=== PATIENT | female | born 1950 | race Caucasian/White ===

== ENCOUNTER 2024-10-03 15:30 | Inpatient (IN) | payer MEDICARE, OTHER ==
[~2024-10-03] VITALS: Ht 167.6 cm; Wt 59.0 kg
[~2024-10-03 15:30] MED LIST: DILT300C34 PO; HYDR12.55 PO; LORA10TA7 PO; OMEP40CA21 PO; SOTA80TA73 PO; TRAZ-251 PO
[2024-10-03] MEDS: diltiazem 5mg/ml 5ml inj. IV ONE (16:03)
[2024-10-03 16:05] LABS: BASOPHILS # (AUTO) 0.1 X10'3 (0-0.2); BASOPHILS % (AUTO) 0.6 % (0-1); EOSINOPHILS % (AUTO) 0.1 % (0-6); HEMATOCRIT 35.3 % (35.0-45.0); HEMOGLOBIN 12.1 g/dl (12.0-16.0); LYMPHOCYTES # (AUTO) 1.1 X10'3 (1.1-4.8); LYMPHOCYTES % (AUTO) 10.5 % (21-51); MEAN CORPUSCULAR HEMOGLOBIN 31.3 PG (27.0-31.0); MEAN CORPUSCULAR HGB CONC 34.4 g/dL (33.0-36.5); MEAN CORPUSCULAR VOLUME 91.2 FL (78-98); MEAN PLATELET VOLUME 8.3 FL (7.4-10.4); MONOCYTES % (AUTO) 18.4 % (2-12); NEUTROPHILS # (AUTO) 7.7 X10'3 (1.8-7.7); NEUTROPHILS % (AUTO) 70.4 % (42-75); PLATELET COUNT 363 X10'3 (140-440); RED BLOOD COUNT 3.87 X10'6 (4.20-5.60); WHITE BLOOD COUNT 10.9 X10'3 (4.5-11.0)
[2024-10-03] MEDS: CefTRIAXone 2gm/D5W 50ml BAG 50 ML IV ONE (16:05)
[2024-10-03] MEDS: magnesium sulf-water 2g/50mL 50 ML IV ONE ×2 (16:09→16:40)
[2024-10-03 16:17] LABS: PROTHROMBIN TIME 29.3 SECONDS (9.0-12.0)
[2024-10-03 16:28] LABS: ALANINE AMINOTRANSFERASE 38 U/L (12-78); ALBUMIN 2.6 G/DL (3.4-5.0); ALBUMIN/GLOBULIN RATIO 0.6 (1.1-1.5); ALKALINE PHOSPHATASE 61 IU/L (46-116); ANION GAP 8 (8-16); ASPARTATE AMINO TRANSFERASE 52 U/L (10-37); BILIRUBIN,TOTAL 0.5 MG/DL (0.1-1.0); BLOOD UREA NITROGEN 18 MG/DL (7-18); CALCIUM 7.3 MG/DL (8.5-10.1); CHLORIDE 95 MMOL/L (99-107); GLUCOSE 111 MG/DL (70-104); PRO BRAIN NATRIURETIC PEPTIDE 1707 PG/ML (0-450); SODIUM 136 MMOL/L (135-145); TOTAL CARBON DIOXIDE 33.5 MMOL/L (24-32); eCRCL 50 ML/MIN; eGFR 61 ML/MIN
[2024-10-03 16:33] LABS: POTASSIUM 2.8 MMOL/L (3.5-5.1)
[2024-10-03 16:40] LABS: BILIRUBIN,URINE NEGATIVE (Neg); CLARITY,URINE CLEAR (Clear); COLOR,URINE YELLOW (Yellow); GLUCOSE, URINE NEGATIVE (Neg); KETONES,URINE 15 mg/dl (Neg); LEUKOCYTE ESTERASE ,URINE NEGATIVE (Neg); NITRITES, URINE NEGATIVE (Neg); OCCULT BLOOD,URINE NEGATIVE (Neg); PROTEIN,URINE 100 mg/dl (Neg); UROBILINOGEN,URINE 0.2 E.U/dL (0.2-1.0)
[2024-10-03 16:48] LABS: UA COLLECTION TYPE STRAIGHT CATH
[2024-10-03 16:49] LABS: BACTERIA,URINE FEW /HPF (Neg); RBC,URINE 0-2 /HPF (0-2); SQUAMOUS EPITHELIAL CELL,UR FEW /LPF (FEW); WBC,URINE 0-4 /HPF (0-4)
[2024-10-03 16:50] LABS: COARSE GRANULAR CAST 0-3 /LPF (NEGATIVE); FINE GRANULAR CAST 0-3 /LPF (NEGATIVE); MUCUS STRANDS FEW /LPF (Neg)
[2024-10-03] MEDS: potassium Cl 20 mEq SR tablet PO ONE (16:59)
[2024-10-03] MEDS: diltiazem-NS 100mg/100ml 100 ML IV SCH ×2 (17:01→20:52)
[2024-10-03 17:03] VITALS: PULSE 145; RESP 20; O2SAT 96
[2024-10-03] MEDS ORDERED: METO-395 PO (17:26)
[2024-10-03] MEDS ORDERED: WARF-65 PO (17:26)
[2024-10-03] MEDS ORDERED: WARF6TAB49 PO (17:26)
[2024-10-03] MEDS ORDERED: AMLO10TA13 PO (17:26)
[2024-10-03] MEDS ORDERED: acetaminophen 325mg tablet PO PRN (17:35)
[2024-10-03] MEDS ORDERED: morphine 2 MG/ML inj. syringe IV PRN ×2 (17:35)
[2024-10-03] MEDS ORDERED: ipratropium/albuterol 3ml nebule NEB PRN (17:35)
[2024-10-03] MEDS ORDERED: mag hydrox/Alum hydrox/simeth 30ml oral suspension PO PRN (17:35)
[2024-10-03] MEDS ORDERED: magnesium hydroxide 30ml (MOM) UD suspension PO PRN (17:35)
[2024-10-03] MEDS ORDERED: magnesium sulf-water 2g/50mL 50 ML IV PRN (17:35)
[2024-10-03] MEDS ORDERED: ondansetron/PF 4mg/2ml inj IV PRN (17:35)
[2024-10-03] MEDS ORDERED: potassium Cl 40MEQ/1/2NS 520ml 520 ML IV PRN (17:35)
[2024-10-03] MEDS ORDERED: docusate sod 100mg capsule PO PRN (17:35)
[2024-10-03] MEDS ORDERED: potassium Cl 20 mEq SR tablet PO PRN (17:35)
[2024-10-03] MEDS ORDERED: furosemide 10 MG/1 ML 10ml inj IV ONE (17:40)
[2024-10-03] MEDS ORDERED: azithromycin/NS 500mg/250ml 250 ML IV SCH (17:45)
[2024-10-03 18:02] LABS: HEMOGLOBIN A1C 5.3 % (4.5-6.2)
[2024-10-03] MEDS: furosemide 20 MG/2 ML vial IV ONE (18:08)
[2024-10-03 18:10] LABS: THYROID STIMULATING HORMONE 1.15 ulU/ml (0.34-4.50)
[2024-10-03] MEDS ORDERED: diltiazem CD 120mg capsule (once-daily) PO SCH (18:40)
[2024-10-03] MEDS: PERFLUTREN PROTEIN-A MICROSPHR (Optison) 0.22 MG/ML 3ML VIAL IV ONE (18:40)
[2024-10-03] MEDS: COMMUNICATION ORDER 1 EA MISC MC ONE (18:40)
[2024-10-03 19:15] VITALS: PULSE 139; RESP 18; O2SAT 96
[2024-10-03 19:17] LABS: PLATELET ESTIMATE NORMAL; TOTAL CELLS COUNTED 100
[2024-10-03] MEDS: levoFLOXACIN-Levaquin 500mg/D5 100 ML IV ONE (19:58)
[2024-10-03] MEDS ORDERED: sotalol 80mg tablet PO SCH (20:00)
[2024-10-03] MEDS ORDERED: heparin, porcine 5000 units/ml vial SQ SCH (20:00)
[2024-10-03] MEDS: K and/or MAG REPLACEMENT MC SCH (20:00)
[2024-10-03] MEDS ORDERED: sotalol HCl 40mg (1/2 tablet) PO SCH (20:00)
[2024-10-03] MEDS: guaiFENesin ER 600mg tablet PO SCH (21:51)
[2024-10-03] MEDS: traZODone 50mg tablet PO SCH (21:51)
[2024-10-03] MEDS: methylPREDNISolone sod succ 125mg/2ml vial IV SCH (21:53)
[2024-10-03 23:38] VITALS: BP 134/77; PULSE 113; RESP 24; TEMP 97.4; O2SAT 93
[2024-10-04] VITALS (32 sets, daily range): BP systolic 110–146; BP diastolic 66–88; PULSE 88–135; RESP 15–24; TEMP 97.1–98.6; O2SAT 90–96
[2024-10-04] MEDS: levoFLOXACIN-Levaquin 500mg/D5 100 ML IV SCH (07:40)
[2024-10-04] MEDS ORDERED: DILTIAZEM HCL PO SCH (08:00)
[2024-10-04] MEDS ORDERED: diltiazem CD 180mg cap (once-daily) PO SCH (08:00)
[2024-10-04] MEDS ORDERED: CefTRIAXone/D5W-Rocephin 1gm 50 ML IV SCH (08:00)
[2024-10-04 08:11] LABS: BASOPHILS % (AUTO) 0.1 % (0-1); EOSINOPHILS % (AUTO) 0 % (0-6); HEMATOCRIT 35.8 % (35.0-45.0); HEMOGLOBIN 12.2 g/dl (12.0-16.0); LYMPHOCYTES # (AUTO) 0.5 X10'3 (1.1-4.8); LYMPHOCYTES % (AUTO) 6.1 % (21-51); MEAN CORPUSCULAR HEMOGLOBIN 31.1 PG (27.0-31.0); MEAN CORPUSCULAR HGB CONC 34.2 g/dL (33.0-36.5); MEAN CORPUSCULAR VOLUME 90.9 FL (78-98); MEAN PLATELET VOLUME 8.7 FL (7.4-10.4); MONOCYTES # (AUTO) 0.1 X10'3 (0-0.9); MONOCYTES % (AUTO) 1.4 % (2-12); NEUTROPHILS # (AUTO) 7.2 X10'3 (1.8-7.7); NEUTROPHILS % (AUTO) 92.4 % (42-75); PLATELET COUNT 352 X10'3 (140-440); RED BLOOD COUNT 3.94 X10'6 (4.20-5.60); RED CELL DISTRIBUTION WIDTH 14.1 % (11.5-14.5); WHITE BLOOD COUNT 7.8 X10'3 (4.5-11.0)
[2024-10-04 08:37] LABS: ALANINE AMINOTRANSFERASE 50 U/L (12-78); ALBUMIN 2.6 G/DL (3.4-5.0); ALBUMIN/GLOBULIN RATIO 0.6 (1.1-1.5); ALKALINE PHOSPHATASE 65 IU/L (46-116); ANION GAP 11 (8-16); ASPARTATE AMINO TRANSFERASE 59 U/L (10-37); BILIRUBIN,TOTAL 0.5 MG/DL (0.1-1.0); BLOOD UREA NITROGEN 20 MG/DL (7-18); BUN/CREATININE RATIO 23.8 (10.0-20.0); CALCIUM 7.7 MG/DL (8.5-10.1); CHLORIDE 95 MMOL/L (99-107); CHOL/HDL RATIO 2.2 (0.00-4.99); CHOLESTEROL 139 MG/DL (0-200); CREATININE 0.84 MG/DL (0.40-0.90); GLUCOSE 128 MG/DL (70-104); HDL CHOLESTEROL 63 MG/DL (35-60); LDL CHOLESTEROL 60 MG/DL (50-100); POTASSIUM 3.3 MMOL/L (3.5-5.1); SODIUM 137 MMOL/L (135-145); TOTAL CARBON DIOXIDE 31.3 MMOL/L (24-32); TOTAL PROTEIN 7.3 G/DL (6.4-8.2); TRIGLYCERIDES 62 MG/DL (20-135); eCRCL 53 ML/MIN; eGFR 66 ML/MIN
[2024-10-04 08:52] LABS: MAGNESIUM 0.9 MG/DL (1.5-2.4)
[2024-10-04] MEDS: potassium Cl 20 mEq SR tablet PO PRN (09:00)
[2024-10-04] MEDS: magnesium Cl slow-release 64mg tablet PO PRN (09:00)
[2024-10-04] MEDS: magnesium sulf-water 4G/100mL 100 ML IV PRN (09:31)
[2024-10-04] MEDS: diltiazem CD 180mg cap (once-daily) PO SCH (10:15)
[2024-10-04] MEDS: diltiazem 5mg/ml 5ml inj. IV ONE (11:08)
[2024-10-04 11:18] LABS: INR 3.6 INR
[2024-10-04] MEDS: sotalol HCl 40mg (1/2 tablet) PO SCH (13:41)
[2024-10-04] MEDS: HYDROcodone/acetaminophen 5mg/325mg tablet PO PRN (15:13)
[2024-10-04] MEDS: ipratropium/albuterol 3ml nebule NEB PRN (23:58)
[2024-10-05] VITALS (12 sets, daily range): BP systolic 115–143; BP diastolic 75–87; PULSE 72–101; RESP 16–26; TEMP 97.3–97.7; O2SAT 92–97
[2024-10-05 05:01] LABS: EOSINOPHILS % (AUTO) 0 % (0-6); LYMPHOCYTES # (AUTO) 0.6 X10'3 (1.1-4.8); MEAN PLATELET VOLUME 8.6 FL (7.4-10.4); MONOCYTES # (AUTO) 0.3 X10'3 (0-0.9); MONOCYTES % (AUTO) 3.9 % (2-12); NEUTROPHILS # (AUTO) 7.4 X10'3 (1.8-7.7); WHITE BLOOD COUNT 8.4 X10'3 (4.5-11.0)
[2024-10-05 05:04] LABS: BASOPHILS % (AUTO) 0.6 % (0-1); HEMATOCRIT 35.5 % (35.0-45.0); LYMPHOCYTES % (AUTO) 7.4 % (21-51); MEAN CORPUSCULAR HGB CONC 33.7 g/dL (33.0-36.5); MEAN CORPUSCULAR VOLUME 91.8 FL (78-98); NEUTROPHILS % (AUTO) 88.1 % (42-75); PLATELET COUNT 397 X10'3 (140-440); RED BLOOD COUNT 3.87 X10'6 (4.20-5.60); RED CELL DISTRIBUTION WIDTH 14.1 % (11.5-14.5)
[2024-10-05 05:14] LABS: INR 3.3 INR; PROTHROMBIN TIME 31.4 SECONDS (9.0-12.0)
[2024-10-05 05:26] LABS: ALANINE AMINOTRANSFERASE 53 U/L (12-78); ALBUMIN 2.6 G/DL (3.4-5.0); ALBUMIN/GLOBULIN RATIO 0.6 (1.1-1.5); ALKALINE PHOSPHATASE 60 IU/L (46-116); ANION GAP 8 (8-16); ASPARTATE AMINO TRANSFERASE 42 U/L (10-37); BILIRUBIN,TOTAL 0.4 MG/DL (0.1-1.0); BLOOD UREA NITROGEN 27 MG/DL (7-18); BUN/CREATININE RATIO 38.6 (10.0-20.0); CALCIUM 8.5 MG/DL (8.5-10.1); CHLORIDE 96 MMOL/L (99-107); GLUCOSE 140 MG/DL (70-104); MAGNESIUM 2.5 MG/DL (1.5-2.4); POTASSIUM 4.3 MMOL/L (3.5-5.1); SODIUM 133 MMOL/L (135-145); TOTAL CARBON DIOXIDE 29.3 MMOL/L (24-32); TOTAL PROTEIN 7.1 G/DL (6.4-8.2); eCRCL 64 ML/MIN; eGFR 81 ML/MIN
[2024-10-05] MEDS: diltiazem CD 120mg capsule (once-daily) PO STA (12:58)
[2024-10-06] VITALS (11 sets, daily range): BP systolic 121–140; BP diastolic 72–93; PULSE 71–96; RESP 14–24; TEMP 97–97.7; O2SAT 92–97
[2024-10-06 07:07] LABS: BASOPHILS % (AUTO) 0.3 % (0-1); EOSINOPHILS % (AUTO) 0 % (0-6); HEMATOCRIT 34.6 % (35.0-45.0); HEMOGLOBIN 11.8 g/dl (12.0-16.0); LYMPHOCYTES # (AUTO) 0.6 X10'3 (1.1-4.8); LYMPHOCYTES % (AUTO) 7.8 % (21-51); MEAN CORPUSCULAR HEMOGLOBIN 30.9 PG (27.0-31.0); MEAN CORPUSCULAR VOLUME 90.8 FL (78-98); MEAN PLATELET VOLUME 8.5 FL (7.4-10.4); MONOCYTES # (AUTO) 0.3 X10'3 (0-0.9); MONOCYTES % (AUTO) 3.7 % (2-12); NEUTROPHILS # (AUTO) 6.6 X10'3 (1.8-7.7); NEUTROPHILS % (AUTO) 88.2 % (42-75); PLATELET COUNT 372 X10'3 (140-440); RED BLOOD COUNT 3.81 X10'6 (4.20-5.60); WHITE BLOOD COUNT 7.5 X10'3 (4.5-11.0)
[2024-10-06 07:10] LABS: INR 1.9 INR; PROTHROMBIN TIME 18.7 SECONDS (9.0-12.0)
[2024-10-06 07:23] LABS: ALANINE AMINOTRANSFERASE 46 U/L (12-78); ALBUMIN 2.5 G/DL (3.4-5.0); ALBUMIN/GLOBULIN RATIO 0.6 (1.1-1.5); ALKALINE PHOSPHATASE 54 IU/L (46-116); ANION GAP 4 (8-16); ASPARTATE AMINO TRANSFERASE 33 U/L (10-37); BILIRUBIN,TOTAL 0.4 MG/DL (0.1-1.0); BLOOD UREA NITROGEN 30 MG/DL (7-18); BUN/CREATININE RATIO 36.6 (10.0-20.0); CALCIUM 8.3 MG/DL (8.5-10.1); CHLORIDE 95 MMOL/L (99-107); CREATININE 0.82 MG/DL (0.40-0.90); GLUCOSE 132 MG/DL (70-104); MAGNESIUM 2.3 MG/DL (1.5-2.4); POTASSIUM 4.3 MMOL/L (3.5-5.1); SODIUM 130 MMOL/L (135-145); TOTAL CARBON DIOXIDE 31.3 MMOL/L (24-32); TOTAL PROTEIN 6.5 G/DL (6.4-8.2); eCRCL 54 ML/MIN; eGFR 68 ML/MIN
[2024-10-06] MEDS ORDERED: diltiazem CD 180mg cap (once-daily) PO SCH (08:00)
[2024-10-06] MEDS ORDERED: diltiazem CD 120mg capsule (once-daily) PO SCH ×3 (08:00→08:21)
[2024-10-06] MEDS ORDERED: diltiazem CD 300mg capsule (once-daily) PO SCH ×2 (08:00)
[2024-10-06] MEDS: pantoprazole 40mg Tablet.DR PO SCH (08:10)
[2024-10-06] MEDS: diltiazem CD 120mg capsule (once-daily) PO SCH (09:04)
[2024-10-06] MEDS: diltiazem CD 180mg cap (once-daily) PO SCH (09:04)
[2024-10-06] MEDS: warfarin 5mg tablet PO ONE (22:43)
[2024-10-07] VITALS (7 sets, daily range): BP systolic 123–145; BP diastolic 73–90; PULSE 70–86; RESP 15–22; TEMP 97.2–97.5; O2SAT 97–99
[2024-10-07 09:05] LABS: BASOPHILS % (AUTO) 0.1 % (0-1); EOSINOPHILS % (AUTO) 0 % (0-6); LYMPHOCYTES # (AUTO) 0.5 X10'3 (1.1-4.8); MEAN PLATELET VOLUME 8.8 FL (7.4-10.4); MONOCYTES # (AUTO) 0.2 X10'3 (0-0.9)
[2024-10-07 09:08] LABS: HEMATOCRIT 37.6 % (35.0-45.0); HEMOGLOBIN 13.1 g/dl (12.0-16.0); LYMPHOCYTES % (AUTO) 9.4 % (21-51); MEAN CORPUSCULAR HEMOGLOBIN 31.3 PG (27.0-31.0); MEAN CORPUSCULAR HGB CONC 34.8 g/dL (33.0-36.5); MONOCYTES % (AUTO) 3.9 % (2-12); NEUTROPHILS # (AUTO) 4.9 X10'3 (1.8-7.7); NEUTROPHILS % (AUTO) 86.6 % (42-75); PLATELET COUNT 472 X10'3 (140-440); RED BLOOD COUNT 4.18 X10'6 (4.20-5.60); RED CELL DISTRIBUTION WIDTH 13.8 % (11.5-14.5); WHITE BLOOD COUNT 5.7 X10'3 (4.5-11.0)
[2024-10-07 09:19] LABS: INR 1.5 INR; PROTHROMBIN TIME 15.1 SECONDS (9.0-12.0)
[2024-10-07 09:47] LABS: ALANINE AMINOTRANSFERASE 52 U/L (12-78); ALBUMIN 2.8 G/DL (3.4-5.0); ALBUMIN/GLOBULIN RATIO 0.7 (1.1-1.5); ALKALINE PHOSPHATASE 63 IU/L (46-116); ANION GAP 7 (8-16); ASPARTATE AMINO TRANSFERASE 32 U/L (10-37); BILIRUBIN,TOTAL 0.4 MG/DL (0.1-1.0); BLOOD UREA NITROGEN 22 MG/DL (7-18); BUN/CREATININE RATIO 26.8 (10.0-20.0); CALCIUM 8.9 MG/DL (8.5-10.1); CHLORIDE 96 MMOL/L (99-107); CREATININE 0.82 MG/DL (0.40-0.90); GLUCOSE 137 MG/DL (70-104); MAGNESIUM 2.2 MG/DL (1.5-2.4); POTASSIUM 4.1 MMOL/L (3.5-5.1); SODIUM 133 MMOL/L (135-145); TOTAL CARBON DIOXIDE 29.7 MMOL/L (24-32); eCRCL 54 ML/MIN; eGFR 68 ML/MIN
[2024-10-07] MEDS ORDERED: PRED10TA23 PO (11:07)
[2024-10-07] MEDS ORDERED: GUAI600T45 PO (11:07)
[2024-10-07] MEDS ORDERED: LEVO-65 PO (11:07)
[2024-10-07] MEDS ORDERED: FURO-150 PO (11:07)
[2024-10-07] MEDS ORDERED: warfarin 3mg tablet PO ONE (21:00)
== END 2024-10-07 16:40 | disposition home or self-care (01) | DRG 291 ==
LOC: ER 15:30 → ED HOLD 17:35 → PCU 3S 22:25
PROVIDERS: ADMIT Internal Medicine; ATTEND Internal Medicine
DX: I11.0 Hypertensive heart disease with heart failure (principal); I50.43 Acute on chronic combined systolic (congestive) and diastolic (congestive) heart failure; J96.01 Acute respiratory failure with hypoxia; J44.1 Chronic obstructive pulmonary disease with (acute) exacerbation; J44.0 Chronic obstructive pulmonary disease with (acute) lower respiratory infection; Z20.822 Contact with and (suspected) exposure to COVID-19; I48.91 Unspecified atrial fibrillation; J20.9 Acute bronchitis, unspecified; E87.6 Hypokalemia; R73.9 Hyperglycemia, unspecified; E88.09 Other disorders of plasma-protein metabolism, not elsewhere classified; E83.51 Hypocalcemia
CPT/HCPCS: 36415; 71045; 80053; 80061; 81001; 83036; 83605; 83735; 83880; 84145; 84443; 84484; 85007; 85025; 85610; 87040; 87070; 87081; 87502; 87503; 87811; 93005; 93306; 94640; 94760; 96365; 96367; 97110; 97116; 97161; 97530; 97535; 99291; C1758; G0378; J0696; J1940; J1956; J2919; J3475; J3490; J7040

== ENCOUNTER 2024-10-11 10:53 | Inpatient (IN) | payer MEDICARE, OTHER ==
[~2024-10-11] VITALS: Ht 157.5 cm; Wt 63.8 kg
[~2024-10-11 10:53] MED LIST changes: +AMLO10TA13 PO; +FURO-150 PO; +GUAI600T45 PO; +LEVO-65 PO; +LIDOcaine 1% 30ml preserv. free vial ONE; -LORA10TA7 PO; +PRED10TA23 PO; +WARF6TAB49 PO; +fentaNYL/PF 50MCG/1 ML 2ML syringe ONE; +heparin 1,000unit/ml 10ml vial 10 ML ONE; +iohexol 350 MG/ML 50ML vial IV ONE; +iohexol 350MG/ML 100ml bottle IV ONE; +midazolam 1 mg/ML 2ml injection ONE; +nitroGLYCERIN 500mcg/5mL D5W 5 ML IV ONE; +verapamil 2.5 mg/ml inj IV ONE
[2024-10-11 11:35] LABS: BASOPHILS # (AUTO) 0.1 X10'3 (0-0.2); BASOPHILS % (AUTO) 0.6 % (0-1); EOSINOPHILS # (AUTO) 0.1 X10'3 (0-0.9); EOSINOPHILS % (AUTO) 0.4 % (0-6); HEMATOCRIT 46.7 % (35.0-45.0); LYMPHOCYTES # (AUTO) 1.7 X10'3 (1.1-4.8); LYMPHOCYTES % (AUTO) 12.6 % (21-51); MEAN CORPUSCULAR HEMOGLOBIN 30.9 PG (27.0-31.0); MEAN CORPUSCULAR HGB CONC 34.2 g/dL (33.0-36.5); MEAN CORPUSCULAR VOLUME 90.3 FL (78-98); MEAN PLATELET VOLUME 7.9 FL (7.4-10.4); MONOCYTES # (AUTO) 1.1 X10'3 (0-0.9); MONOCYTES % (AUTO) 7.8 % (2-12); NEUTROPHILS # (AUTO) 10.8 X10'3 (1.8-7.7); NEUTROPHILS % (AUTO) 78.6 % (42-75); PLATELET COUNT 518 X10'3 (140-440); RED BLOOD COUNT 5.18 X10'6 (4.20-5.60); RED CELL DISTRIBUTION WIDTH 14.3 % (11.5-14.5); WHITE BLOOD COUNT 13.7 X10'3 (4.5-11.0)
[2024-10-11 11:42] LABS: INR 3.1 INR; PROTHROMBIN TIME 29.8 SECONDS (9.0-12.0)
[2024-10-11] MEDS: metoprolol tartrate 1mg/ml inj IV SCH (11:44)
[2024-10-11 11:56] LABS: ALBUMIN 3.1 G/DL (3.4-5.0); ANION GAP 9 (8-16); BLOOD UREA NITROGEN 32 MG/DL (7-18); BUN/CREATININE RATIO 21.5 (10.0-20.0); CALCIUM 9.2 MG/DL (8.5-10.1); CHLORIDE 86 MMOL/L (99-107); CREATININE 1.49 MG/DL (0.40-0.90); GLUCOSE 138 MG/DL (70-104); MAGNESIUM 1.2 MG/DL (1.5-2.4); PRO BRAIN NATRIURETIC PEPTIDE 959 PG/ML (0-450); SODIUM 131 MMOL/L (135-145); TOTAL CARBON DIOXIDE 35.8 MMOL/L (24-32); eCRCL 25 ML/MIN; eGFR 34 ML/MIN
[2024-10-11] MEDS ORDERED: iohexol 350MG/ML 100ml bottle IV ONE (12:05)
[2024-10-11 12:22] LABS: BASOPHILS # (AUTO) 0.1 X10'3 (0-0.2); BASOPHILS % (AUTO) 0.6 % (0-1); EOSINOPHILS # (AUTO) 0.1 X10'3 (0-0.9); EOSINOPHILS % (AUTO) 0.4 % (0-6); HEMATOCRIT 46.7 % (35.0-45.0); LYMPHOCYTES # (AUTO) 1.7 X10'3 (1.1-4.8); LYMPHOCYTES % (AUTO) 12.6 % (21-51); MEAN CORPUSCULAR HEMOGLOBIN 30.9 PG (27.0-31.0); MEAN CORPUSCULAR HGB CONC 34.2 g/dL (33.0-36.5); MEAN CORPUSCULAR VOLUME 90.3 FL (78-98); MEAN PLATELET VOLUME 7.9 FL (7.4-10.4); MONOCYTES # (AUTO) 1.1 X10'3 (0-0.9); MONOCYTES % (AUTO) 7.8 % (2-12); NEUTROPHILS # (AUTO) 10.8 X10'3 (1.8-7.7); NEUTROPHILS % (AUTO) 78.6 % (42-75); PLATELET COUNT 518 X10'3 (140-440); RED BLOOD COUNT 5.18 X10'6 (4.20-5.60); RED CELL DISTRIBUTION WIDTH 14.3 % (11.5-14.5); WHITE BLOOD COUNT 13.7 X10'3 (4.5-11.0)
[2024-10-11] MEDS: normal saline 1000ml 1,000 ML IV ONE (12:25)
[2024-10-11] MEDS ORDERED: FURO-150 PO (13:49)
[2024-10-11] MEDS ORDERED: LEVO-65 PO (13:51)
[2024-10-11] MEDS ORDERED: GUAI400T92 PO (13:51)
[2024-10-11] MEDS ORDERED: PRED5TAB PO (13:52)
[2024-10-11] MEDS: potassium CL 10mEq/100ml bag 100 ML IV ONE (14:38)
[2024-10-11] MEDS: magnesium sulf-water 2g/50mL 50 ML IV ONE (14:39)
[2024-10-11] MEDS ORDERED: magnesium sulf-water 2g/50mL 50 ML IV PRN ×2 (15:05)
[2024-10-11] MEDS ORDERED: magnesium sulf-water 4G/100mL 100 ML IV PRN ×2 (15:05)
[2024-10-11] MEDS ORDERED: potassium Cl 20 mEq SR tablet PO PRN (15:05)
[2024-10-11] MEDS ORDERED: magnesium Cl slow-release 64mg tablet PO PRN (15:05)
[2024-10-11] MEDS: metroNIDAZOLE-Flagyl 500mg/NS 100 ML IV SCH (16:01)
[2024-10-11] MEDS: levoFLOXACIN-Levaquin 500mg/D5 100 ML IV SCH (16:03)
[2024-10-11] MEDS: normal saline 1000ml 1,000 ML IV SCH (16:03)
[2024-10-11] MEDS: K and/or MAG REPLACEMENT MC SCH (20:00)
[2024-10-11 20:50] LABS: PRO BRAIN NATRIURETIC PEPTIDE 752 PG/ML (0-450)
[2024-10-11 21:42] LABS: ALANINE AMINOTRANSFERASE 50 U/L (12-78); ALBUMIN 2.8 G/DL (3.4-5.0); ALBUMIN/GLOBULIN RATIO 0.8 (1.1-1.5); ALKALINE PHOSPHATASE 56 IU/L (46-116); ANION GAP 9 (8-16); ASPARTATE AMINO TRANSFERASE 21 U/L (10-37); BILIRUBIN,TOTAL 0.8 MG/DL (0.1-1.0); BLOOD UREA NITROGEN 29 MG/DL (7-18); BUN/CREATININE RATIO 23.6 (10.0-20.0); CALCIUM 8.3 MG/DL (8.5-10.1); CHLORIDE 90 MMOL/L (99-107); CREATININE 1.23 MG/DL (0.40-0.90); GLUCOSE 102 MG/DL (70-104); POTASSIUM 3.1 MMOL/L (3.5-5.1); SODIUM 132 MMOL/L (135-145); TOTAL CARBON DIOXIDE 33.1 MMOL/L (24-32); TOTAL PROTEIN 6.4 G/DL (6.4-8.2); eCRCL 31 ML/MIN; eGFR 42 ML/MIN
[2024-10-11] MEDS: diltiazem 5mg/ml 5ml inj. IV ONE (22:03)
[2024-10-11] MEDS: potassium Cl 40MEQ/1/2NS 520ml 520 ML IV PRN (22:05)
[2024-10-11 22:12] LABS: MAGNESIUM 1.8 MG/DL (1.5-2.4)
[2024-10-11] MEDS: morphine 2 MG/ML inj. syringe IV PRN (22:13)
[2024-10-11] MEDS: diltiazem-NS 100mg/100ml 100 ML IV SCH (22:32)
[2024-10-12 03:28] LABS: INR 2.9 INR
[2024-10-12 03:32] LABS: ALBUMIN 2.6 G/DL (3.4-5.0); ANION GAP 6 (8-16); BLOOD UREA NITROGEN 25 MG/DL (7-18); BUN/CREATININE RATIO 21.4 (10.0-20.0); CALCIUM 7.7 MG/DL (8.5-10.1); CHLORIDE 95 MMOL/L (99-107); CREATININE 1.17 MG/DL (0.40-0.90); GLUCOSE 91 MG/DL (70-104); MAGNESIUM 1.6 MG/DL (1.5-2.4); POTASSIUM 3.9 MMOL/L (3.5-5.1); SODIUM 132 MMOL/L (135-145); TOTAL CARBON DIOXIDE 31.5 MMOL/L (24-32); eCRCL 32 ML/MIN; eGFR 45 ML/MIN
[2024-10-12 03:33] LABS: BASOPHILS # (AUTO) 0.1 X10'3 (0-0.2); BASOPHILS % (AUTO) 0.4 % (0-1); EOSINOPHILS % (AUTO) 0.3 % (0-6); HEMATOCRIT 38.3 % (35.0-45.0); HEMOGLOBIN 13.4 g/dl (12.0-16.0); LYMPHOCYTES # (AUTO) 1.6 X10'3 (1.1-4.8); LYMPHOCYTES % (AUTO) 11.9 % (21-51); MEAN CORPUSCULAR HEMOGLOBIN 31.1 PG (27.0-31.0); MEAN CORPUSCULAR HGB CONC 34.8 g/dL (33.0-36.5); MEAN CORPUSCULAR VOLUME 89.3 FL (78-98); MEAN PLATELET VOLUME 8.1 FL (7.4-10.4); MONOCYTES # (AUTO) 1.2 X10'3 (0-0.9); MONOCYTES % (AUTO) 8.4 % (2-12); NEUTROPHILS # (AUTO) 10.9 X10'3 (1.8-7.7); PLATELET COUNT 428 X10'3 (140-440); RED CELL DISTRIBUTION WIDTH 14.1 % (11.5-14.5); WHITE BLOOD COUNT 13.8 X10'3 (4.5-11.0)
[2024-10-12 08:13] VITALS: PULSE 90; RESP 16; O2SAT 97
[2024-10-12 22:00] VITALS: BP 134/82; PULSE 100; RESP 13; TEMP 97.8; O2SAT 96
[2024-10-12 22:50] VITALS: RESP 18; O2SAT 98
[2024-10-12] MEDS: ondansetron/PF 4mg/2ml inj IV PRN (23:42)
[2024-10-13] VITALS (17 sets, daily range): BP systolic 113–137; BP diastolic 69–92; PULSE 88–109; RESP 13–24; TEMP 97–98; O2SAT 92–98
[2024-10-13 07:43] LABS: BASOPHILS % (AUTO) 0.2 % (0-1); EOSINOPHILS # (AUTO) 0.1 X10'3 (0-0.9); EOSINOPHILS % (AUTO) 0.6 % (0-6); HEMATOCRIT 34.2 % (35.0-45.0); HEMOGLOBIN 11.7 g/dl (12.0-16.0); LYMPHOCYTES # (AUTO) 0.9 X10'3 (1.1-4.8); LYMPHOCYTES % (AUTO) 7.5 % (21-51); MEAN CORPUSCULAR HEMOGLOBIN 30.7 PG (27.0-31.0); MEAN CORPUSCULAR HGB CONC 34.1 g/dL (33.0-36.5); MEAN CORPUSCULAR VOLUME 90.2 FL (78-98); MEAN PLATELET VOLUME 7.9 FL (7.4-10.4); MONOCYTES # (AUTO) 1.1 X10'3 (0-0.9); MONOCYTES % (AUTO) 9.7 % (2-12); NEUTROPHILS # (AUTO) 9.5 X10'3 (1.8-7.7); PLATELET COUNT 356 X10'3 (140-440); RED CELL DISTRIBUTION WIDTH 14.3 % (11.5-14.5); WHITE BLOOD COUNT 11.5 X10'3 (4.5-11.0)
[2024-10-13 07:52] LABS: PROTHROMBIN TIME 19.8 SECONDS (9.0-12.0)
[2024-10-13 08:18] LABS: ALBUMIN 2.4 G/DL (3.4-5.0); ANION GAP 4 (8-16); BLOOD UREA NITROGEN 13 MG/DL (7-18); BUN/CREATININE RATIO 15.3 (10.0-20.0); CALCIUM 7.7 MG/DL (8.5-10.1); CHLORIDE 100 MMOL/L (99-107); CREATININE 0.85 MG/DL (0.40-0.90); GLUCOSE 89 MG/DL (70-104); MAGNESIUM 1.5 MG/DL (1.5-2.4); SODIUM 134 MMOL/L (135-145); TOTAL CARBON DIOXIDE 29.8 MMOL/L (24-32); eCRCL 45 ML/MIN; eGFR 65 ML/MIN
[2024-10-13 08:29] LABS: POTASSIUM 2.9 MMOL/L (3.5-5.1)
[2024-10-13] MEDS: potassium Cl 20 mEq SR tablet PO PRN (09:03)
[2024-10-13] MEDS: albuterol 2.5 MG/3 ML nebule NEB PRN (12:47)
[2024-10-13] MEDS: lactose-reduced food (Ensure High Protein) 237ml bottle PO SCH (18:00)
[2024-10-14] VITALS (15 sets, daily range): BP systolic 114–142; BP diastolic 71–87; PULSE 74–102; RESP 14–30; TEMP 97.2–98.6; O2SAT 93–98
[2024-10-14 07:43] LABS: BASOPHILS % (AUTO) 0.3 % (0-1); EOSINOPHILS % (AUTO) 0.3 % (0-6); HEMATOCRIT 33.8 % (35.0-45.0); HEMOGLOBIN 11.6 g/dl (12.0-16.0); LYMPHOCYTES # (AUTO) 0.8 X10'3 (1.1-4.8); LYMPHOCYTES % (AUTO) 9.4 % (21-51); MEAN CORPUSCULAR HEMOGLOBIN 30.9 PG (27.0-31.0); MEAN CORPUSCULAR HGB CONC 34.3 g/dL (33.0-36.5); MEAN CORPUSCULAR VOLUME 90.2 FL (78-98); MEAN PLATELET VOLUME 8.5 FL (7.4-10.4); MONOCYTES # (AUTO) 1.1 X10'3 (0-0.9); MONOCYTES % (AUTO) 12.5 % (2-12); NEUTROPHILS # (AUTO) 6.7 X10'3 (1.8-7.7); NEUTROPHILS % (AUTO) 77.5 % (42-75); PLATELET COUNT 332 X10'3 (140-440); RED BLOOD COUNT 3.75 X10'6 (4.20-5.60); RED CELL DISTRIBUTION WIDTH 14.1 % (11.5-14.5); WHITE BLOOD COUNT 8.6 X10'3 (4.5-11.0)
[2024-10-14 07:54] LABS: INR 1.7 INR; PROTHROMBIN TIME 17.2 SECONDS (9.0-12.0)
[2024-10-14] MEDS: levoFLOXACIN-Levaquin 250mg/D5 50 ML IV SCH (08:15)
[2024-10-14 08:20] LABS: ALBUMIN 2.3 G/DL (3.4-5.0); ANION GAP 7 (8-16); BLOOD UREA NITROGEN 6 MG/DL (7-18); BUN/CREATININE RATIO 7.9 (10.0-20.0); CALCIUM 7.4 MG/DL (8.5-10.1); CHLORIDE 102 MMOL/L (99-107); CREATININE 0.76 MG/DL (0.40-0.90); GLUCOSE 90 MG/DL (70-104); MAGNESIUM 1.4 MG/DL (1.5-2.4); POTASSIUM 3.6 MMOL/L (3.5-5.1); SODIUM 133 MMOL/L (135-145); eCRCL 50 ML/MIN; eGFR 74 ML/MIN
[2024-10-14] MEDS: magnesium Cl slow-release 64mg tablet PO PRN ×2 (09:14→20:04)
[2024-10-14] MEDS: diltiazem 30mg tablet PO SCH (14:25)
[2024-10-15] VITALS (11 sets, daily range): BP systolic 111–144; BP diastolic 59–85; PULSE 72–96; RESP 18–28; TEMP 97.3–98.4; O2SAT 95–98
[2024-10-15 08:09] LABS: BASOPHILS % (AUTO) 0.2 % (0-1); EOSINOPHILS # (AUTO) 0.1 X10'3 (0-0.9); EOSINOPHILS % (AUTO) 0.8 % (0-6); HEMATOCRIT 34.5 % (35.0-45.0); LYMPHOCYTES # (AUTO) 0.9 X10'3 (1.1-4.8); LYMPHOCYTES % (AUTO) 11.3 % (21-51); MEAN CORPUSCULAR HGB CONC 34.7 g/dL (33.0-36.5); MEAN CORPUSCULAR VOLUME 89.5 FL (78-98); MEAN PLATELET VOLUME 8.6 FL (7.4-10.4); MONOCYTES % (AUTO) 12.5 % (2-12); NEUTROPHILS # (AUTO) 6.3 X10'3 (1.8-7.7); NEUTROPHILS % (AUTO) 75.2 % (42-75); PLATELET COUNT 329 X10'3 (140-440); RED BLOOD COUNT 3.86 X10'6 (4.20-5.60); RED CELL DISTRIBUTION WIDTH 14.2 % (11.5-14.5); WHITE BLOOD COUNT 8.3 X10'3 (4.5-11.0)
[2024-10-15 08:13] LABS: INR 1.5 INR; PROTHROMBIN TIME 15.3 SECONDS (9.0-12.0)
[2024-10-15 08:25] LABS: ALBUMIN 2.3 G/DL (3.4-5.0); ANION GAP 7 (8-16); BLOOD UREA NITROGEN 4 MG/DL (7-18); BUN/CREATININE RATIO 5.3 (10.0-20.0); CALCIUM 7.4 MG/DL (8.5-10.1); CHLORIDE 101 MMOL/L (99-107); CREATININE 0.76 MG/DL (0.40-0.90); GLUCOSE 89 MG/DL (70-104); MAGNESIUM 1.3 MG/DL (1.5-2.4); POTASSIUM 3.3 MMOL/L (3.5-5.1); SODIUM 134 MMOL/L (135-145); TOTAL CARBON DIOXIDE 25.6 MMOL/L (24-32); eCRCL 50 ML/MIN; eGFR 74 ML/MIN
[2024-10-15] MEDS ORDERED: potassium Cl 40MEQ/1/2NS 520ml 520 ML IV PRN (09:55)
[2024-10-15] MEDS ORDERED: magnesium sulf-water 4G/100mL 100 ML IV PRN (09:55)
[2024-10-15] MEDS ORDERED: potassium Cl 20 mEq SR tablet PO PRN (09:55)
[2024-10-15] MEDS: magnesium sulf-water 2g/50mL 50 ML IV PRN (10:11)
[2024-10-15] MEDS: potassium Cl 20 mEq SR tablet PO PRN (10:11)
[2024-10-15] MEDS: psyllium seed 5.8 gm packet (sugar-free) PO SCH (13:45)
[2024-10-15] MEDS: K and/or MAG REPLACEMENT MC SCH (19:18)
[2024-10-15] MEDS: morphine 2 MG/ML inj. syringe IV PRN (22:23)
[2024-10-16 02:00] VITALS: BP 124/80; PULSE 72; RESP 18; TEMP 97.2; O2SAT 98
[2024-10-16 06:00] VITALS: BP 141/98; PULSE 93; RESP 18; TEMP 98.6; O2SAT 95
[2024-10-16 06:46] LABS: INR 1.3 INR; PROTHROMBIN TIME 13.7 SECONDS (9.0-12.0)
[2024-10-16 06:54] LABS: BASOPHILS % (AUTO) 0.4 % (0-1); EOSINOPHILS # (AUTO) 0.1 X10'3 (0-0.9); EOSINOPHILS % (AUTO) 1.1 % (0-6); HEMATOCRIT 36.2 % (35.0-45.0); HEMOGLOBIN 12.4 g/dl (12.0-16.0); LYMPHOCYTES % (AUTO) 16.6 % (21-51); MEAN CORPUSCULAR HEMOGLOBIN 30.8 PG (27.0-31.0); MEAN CORPUSCULAR HGB CONC 34.2 g/dL (33.0-36.5); MEAN CORPUSCULAR VOLUME 89.9 FL (78-98); MEAN PLATELET VOLUME 7.9 FL (7.4-10.4); MONOCYTES # (AUTO) 0.9 X10'3 (0-0.9); MONOCYTES % (AUTO) 15.1 % (2-12); NEUTROPHILS # (AUTO) 4.1 X10'3 (1.8-7.7); NEUTROPHILS % (AUTO) 66.8 % (42-75); PLATELET COUNT 369 X10'3 (140-440); RED BLOOD COUNT 4.03 X10'6 (4.20-5.60); RED CELL DISTRIBUTION WIDTH 14.3 % (11.5-14.5); WHITE BLOOD COUNT 6.1 X10'3 (4.5-11.0)
[2024-10-16 07:18] LABS: ALBUMIN 2.2 G/DL (3.4-5.0); ANION GAP 6 (8-16); BLOOD UREA NITROGEN 3 MG/DL (7-18); CALCIUM 7.7 MG/DL (8.5-10.1); CHLORIDE 104 MMOL/L (99-107); CREATININE 0.75 MG/DL (0.40-0.90); GLUCOSE 92 MG/DL (70-104); MAGNESIUM 1.8 MG/DL (1.5-2.4); POTASSIUM 4.1 MMOL/L (3.5-5.1); SODIUM 137 MMOL/L (135-145); TOTAL CARBON DIOXIDE 26.8 MMOL/L (24-32); eCRCL 50 ML/MIN; eGFR 75 ML/MIN
[2024-10-16 08:00] VITALS: RESP 18; O2SAT 95
[2024-10-16] MEDS: diltiazem CD 120mg capsule (once-daily) PO SCH (08:31)
[2024-10-16] MEDS ORDERED: CARCD120C PO (10:24)
[2024-10-16] MEDS ORDERED: LEVO-65 PO (10:24)
[2024-10-16] MEDS ORDERED: METR-159 PO (10:24)
== END 2024-10-16 13:13 | disposition home health service (06) | DRG 871 ==
LOC: ER 10:54 → ED HOLD 15:07 → EDBEDREQSVC 10-12 21:51 → EDBEDREQ 10-12 21:51 → PCU 3S 10-12 22:40
PROVIDERS: ADMIT Internal Medicine; ATTEND Internal Medicine
PROC: BW211ZZ Computerized Tomography (CT Scan) of Abdomen and Pelvis using Low Osmolar Contrast (ICD-10-PCS; principal; 2024-10-11)
PROC: B4201ZZ Computerized Tomography (CT Scan) of Abdominal Aorta using Low Osmolar Contrast (ICD-10-PCS; 2024-10-11)
PROC: B4241ZZ Computerized Tomography (CT Scan) of Superior Mesenteric Artery using Low Osmolar Contrast (ICD-10-PCS; 2024-10-11)
PROC: B4281ZZ Computerized Tomography (CT Scan) of Bilateral Renal Arteries using Low Osmolar Contrast (ICD-10-PCS; 2024-10-11)
PROC: B4211ZZ Computerized Tomography (CT Scan) of Celiac Artery using Low Osmolar Contrast (ICD-10-PCS; 2024-10-11)
DX: A41.9 Sepsis, unspecified organism (principal); N17.0 Acute kidney failure with tubular necrosis; E87.1 Hypo-osmolality and hyponatremia; J96.10 Chronic respiratory failure, unspecified whether with hypoxia or hypercapnia; K51.30 Ulcerative (chronic) rectosigmoiditis without complications; I48.20 Chronic atrial fibrillation, unspecified; E83.42 Hypomagnesemia; E87.6 Hypokalemia; I11.0 Hypertensive heart disease with heart failure; T50.1X5A Adverse effect of loop [high-ceiling] diuretics, initial encounter; K62.89 Other specified diseases of anus and rectum; I48.91 Unspecified atrial fibrillation; J44.9 Chronic obstructive pulmonary disease, unspecified; Z98.84 Bariatric surgery status; Z87.891 Personal history of nicotine dependence; Z79.899 Other long term (current) drug therapy; Z79.01 Long term (current) use of anticoagulants; Z88.8 Allergy status to other drugs, medicaments and biological substances; Z91.030 Bee allergy status; Z91.040 Latex allergy status; Y92.89 Other specified places as the place of occurrence of the external cause
CPT/HCPCS: 36415; 71045; 74174; 80048; 80053; 83605; 83735; 83880; 84132; 84145; 84484; 85025; 85610; 85651; 87081; 93005; 94640; 94760; 97116; 97161; 97530; 99285; A4615; G0378; J1644; J1956; J2003; J2250; J2270; J2405; J3010; J3480; J3490; J7030; J7040; Q9967

== ENCOUNTER 2025-06-21 11:43 | Outpatient (CLI) | payer MEDICARE, OTHER ==
[~2025-06-21 11:43] MED LIST changes: -AMLO10TA13 PO; +CARCD120C PO; -DILT300C34 PO; -FURO-150 PO; +GUAI400T92 PO; -HYDR12.55 PO; -LIDOcaine 1% 30ml preserv. free vial ONE; +METR-159 PO; -PRED10TA23 PO; +PRED5TAB PO; -SOTA80TA73 PO; -fentaNYL/PF 50MCG/1 ML 2ML syringe ONE; -heparin 1,000unit/ml 10ml vial 10 ML ONE; -iohexol 350MG/ML 100ml bottle IV ONE; -midazolam 1 mg/ML 2ml injection ONE; -nitroGLYCERIN 500mcg/5mL D5W 5 ML IV ONE; -verapamil 2.5 mg/ml inj IV ONE
[2025-06-21 12:56] LABS: CREATININE 0.82 MG/DL (0.40-0.90); TOTAL CARBON DIOXIDE 31.2 MMOL/L (24-32); eGFR 68 ML/MIN
[2025-06-21] MEDS ORDERED: iohexol 350 MG/ML 50ML vial IV ONE (13:08)
--- NOTE | 2025-06-21 15:47 | RADIOLOGY REPORT ---
Examination: CT CTA ABDOMEN LOWER EXTR RUNOFF CLINICAL HISTORY: ENCOUNTER FOR OTHER PREPROCEDURAL EXAMINATION Comparison: 10/11/2024 Technique: Using helical technique, CT data from the lung bases through the toes was obtained during rapid IV contrast infusion. The examination was timed to the arterial system to generate a CT angiogr aphic study. 3D images were generated at an independent work station. Dose reduction techniques inclu ded automated exposure control. Radiation Dose Information: CT Dose: CTDI volume is 4.4 mGy. Dose-length product is 1517.2 mGy*cm Findings: Vascular: Abdominal aorta: Normal caliber, patent Celiac artery: Patent, high grade stenosis proximally. SMA: Patent. 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 This is unchanged. Renal arteries: Patent LEDY: Patent Right lower extremity: Common iliac artery: Patent External iliac artery: Patent Internal iliac artery: Patent Common femoral artery: Patent Profunda femoral artery: Patent Superficial femoral artery: Patent Popliteal artery: Patent Anterior tibial artery: Patent Peroneal tibial trunk: Patent Peroneal artery: Patent Posterior tibial artery: Patent Dorsalis pedis artery: Patent Left lower extremity: Common iliac artery: Patent External iliac artery: Patent Internal iliac artery: Patent Common femoral artery: Patent Profunda femoral artery: Patent Superficial femoral artery: Patent Popliteal artery: Patent Anterior tibial artery: Patent Peroneal tibial trunk: Patent Peroneal artery: Patent Posterior tibial artery: Patent Dorsalis pedis artery: Patent Portal/mesenteric veins: normal Abdominal systemic veins: normal Chest: Cardiomegaly. Abdomen/Pelvis: Liver: The liver is normal in size and morphology,. No focal hepatic lesion. The portal veins are pat ent. Biliary System: Gallbladder: Absent Bile Ducts: No intrahepatic or extrahepatic biliary ductal dilation. Spleen: No splenomegaly or focal splenic lesion. Pancreas: No masses or ductal dilation. Adrenals: Normal. Urinary System: Kidneys and Ureters: Normal in size and location. No renal masses. No renal or ureteral calculi. No hydronephrosis or hydroureter. Bladder: Normal. GI System: Stomach, small bowel, and large bowel are normal in caliber without wall thickening or dil ation Appendix is normal. Diverticulosis. Lymph nodes: No lymphadenopathy. Peritoneal cavity and surface: No free fluid. No pneumoperitoneum. Soft Tissues: Normal. Reproductive Organs: Normal. Bones: No acute fracture or aggressive osseous lesion. Impression: Vascular: 1. No evidence of acute vascular disease. 2. 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 3. 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 Right Lower Extremity: 1. Patent inflow 2. Patent outflow 3. Patent 3 vessel runoff Left Lower Extremity: 1. Patent inflow 2. Patent outflow 3. Patent 3 vessel runoff Abdomen/Pelvis: 1. No acute abdominal pelvic process.
== END 2025-06-21 23:59 | disposition home or self-care (01) ==
LOC: 64 CT 11:43
PROVIDERS: ATTEND Surgery
DX: Z01.818 Encounter for other preprocedural examination (principal); I51.7 Cardiomegaly; I77.4 Celiac artery compression syndrome
CPT/HCPCS: 36415; 75635; 80048; Q9967

== ENCOUNTER 2025-06-21 12:11 | Outpatient (CLI) | payer MEDICARE, OTHER ==
[~2025-06-21 12:11] MED LIST changes: -iohexol 350 MG/ML 50ML vial IV ONE
== END 2025-06-21 23:59 | disposition home or self-care (01) ==
LOC: RAD 12:11 → SSTAY O 06-22 08:11 → EDSTATUS 06-22 10:00
PROVIDERS: ATTEND Radiology Diagnostic Radiology
DX: I77.4 Celiac artery compression syndrome (principal)
CPT/HCPCS: 75635